=== PATIENT | male | born 1975 | race Caucasian/White ===

== ENCOUNTER 2019-09-09 08:53 | Emergency (ER) | payer OTHER ==
[~2019-09-09] VITALS: Ht 188 cm; Wt 102.1 kg
[2019-09-09] MEDS ORDERED: CHILDREN'S ASPI81 MG PO (09:07)
== END 2019-09-09 13:29 | disposition home or self-care (01) ==
LOC: ER 08:53
DX: R40.4 Transient alteration of awareness (principal)

== ENCOUNTER 2019-09-13 09:10 | Outpatient (CLI) | payer OTHER ==
[~2019-09-13 09:10] MED LIST: CHILDREN'S ASPI81 MG PO
== END 2019-09-14 15:44 | disposition home or self-care (01) ==
LOC: MRI 09:10
DX: R41.0 Disorientation, unspecified (principal)
CPT/HCPCS: 70551